=== PATIENT | female | born 1955 | race Caucasian/White ===

== ENCOUNTER 2022-05-19 09:26 | Emergency (ER) | payer MEDICARE ==
[~2022-05-19 09:26] MED LIST: CYMBALTA60 MG PO; DULOXETINE HCL30 MG PO; GABAPENTIN100 MG PO; NEURONTIN300 MG PO; PREGABALIN25 MG PO; PREGABALIN50 MG PO
[2022-05-19] MEDS ORDERED: AUGMENTIN 500-1 EACH PO (10:08)
== END 2022-05-19 10:24 | disposition home or self-care (01) ==
LOC: FER 09:26
DX: J01.10 Acute frontal sinusitis, unspecified (principal); I10 Essential (primary) hypertension; E11.40 Type 2 diabetes mellitus with diabetic neuropathy, unspecified; Z91.041 Radiographic dye allergy status; Z88.5 Allergy status to narcotic agent
CPT/HCPCS: 99283